=== PATIENT | female | born 2000 | race Caucasian/White ===

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

== ENCOUNTER 2018-06-01 12:20 | Emergency (ER) | payer OTHER ==
[~2018-06-01] VITALS: Ht 167.6 cm; Wt 84.8 kg
== END 2018-06-01 17:39 | disposition home or self-care (01) ==
LOC: ER 12:20
DX: R10.2 Pelvic and perineal pain (principal); M54.5 Low back pain; E27.8 Other specified disorders of adrenal gland

== ENCOUNTER 2018-09-30 14:20 | Emergency (ER) | payer OTHER ==
[~2018-09-30] VITALS: Ht 165.1 cm; Wt 78.5 kg
== END 2018-09-30 16:43 | disposition home or self-care (01) ==
LOC: ER 14:20
DX: M43.6 Torticollis (principal); M54.2 Cervicalgia

== ENCOUNTER 2018-12-28 01:47 | Emergency (ER) | payer OTHER ==
[~2018-12-28] VITALS: Ht 170.2 cm; Wt 81.6 kg
== END 2018-12-28 07:15 | disposition home or self-care (01) ==
LOC: ER 01:47
DX: N39.0 Urinary tract infection, site not specified (principal)

== ENCOUNTER 2023-01-21 22:05 | Emergency (ER) | payer OTHER ==
[~2023-01-21] VITALS: Ht 165.1 cm; Wt 78.0 kg
== END 2023-01-21 23:41 | disposition home or self-care (01) ==
LOC: ER 22:05
DX: M62.838 Other muscle spasm (principal)